=== PATIENT | female | born 1945 | race Caucasian/White ===

== ENCOUNTER 2017-02-14 13:33 | Emergency (ER) | payer OTHER, MEDICARE ==
[~2017-02-14] VITALS: Ht 162.6 cm; Wt 70.0 kg
[~2017-02-14 13:33] MED LIST: ANT25 PO; NXM/40 PO; ONDA4TAB46 PO
[2017-02-14 13:38] VITALS: Ht 162.6 cm; Wt 70.0 kg
[2017-02-14] MEDS ORDERED: ACETAMINOPHEN 500 MG TAB PO STA (13:54)
[2017-02-14] MEDS ORDERED: FLNIN/ NAE (14:10)
[2017-02-14] MEDS ORDERED: PRMVC PV (14:10)
[2017-02-14] MEDS ORDERED: CALC500T83 (14:11)
--- NOTE | 2017-02-14 14:41 | DIAGNOSTIC IMAGING REPORT ---
R FEMUR 2 VIEWS ROUTINE HISTORY: 72 years-old Female pain mid-shaft, lateral femur acute right femoral pain without reported trauma. COMPARISON: None available TECHNIQUE: Frontal and lateral views of the right femur FINDINGS: Mild to moderate right hip osteoarthritis. The bones are mildly demineralized. Tricompartment mild degenerative changes about the knee. No acute fracture or dislocation. The soft tissues are unremarkable. IMPRESSION: No acute fracture or dislocation. The above report was generated using voice recognition software. It may contain grammatical, syntax or spelling errors. Electronically signed by: Stanford Oneill M.D. 02/14/2017 2:39 PM Dictated Date/Time: 02/14/2017 2:30 PM
--- NOTE | 2017-02-14 14:45 | EMERGENCY ROOM VISIT NOTE ---
ED Visit Note First contact with patient: 13:41 CHIEF COMPLAINT: Hip pain HISTORY OF PRESENT ILLNESS: This 72-year-old female patient complains of moderate right hip pain which is worse with any movement of the leg and much worse with weight bearing. The pain began spontaneously this morning while getting out of bed. She states the pain did awaken her from sleep this morning. She states the pain became worse with movement as well as weightbearing. The pain continued to worsen over the late morning, so she decided to come to the emergency department. She states the pain does seem to be slightly better at this point, but is still causing her discomfort. The patient states the pain is in the outside of the hip and radiating down into the thigh. She does and rates it 8/10. She denies any injury. There is no numbness or tingling. There has been no abdominal or back pain. The patient was recently diagnosed with osteoporosis, so has been going to the gym more often this week. She states she went 3 times, this week for an hour each time. She states she has been doing a treadmill, bicycle, and weight lifting with her arms type of exercises. REVIEW OF SYSTEMS: A complete 10 point review of systems was reviewed with the patient with pertinent positives and negatives as per history of present illness. All else were negative. PMH: Osteoporosis, gastroparesis, GERD SOCIAL HISTORY: Patient lives locally at home. Non-smoker, no alcohol use. PHYSICAL EXAM: Vital Signs: Reviewed Nurse's notes. NECK: Supple, non-tender. ABDOMEN: No masses or tenderness, no organs palpable. Bowel sounds normo- active. HIP: The right hip is tender in the area of the bursa, not swollen, and the range of motion is full, however, painful. There is also pain radiating down the lateral thigh to about the mid-way point. The skin is normal and there are normal distal pulses and sensation. RADIOLOGY: R FEMUR 2 VIEWS ROUTINE HISTORY: 72 years-old Female pain mid-shaft, lateral femur acute right femoral pain without reported trauma. COMPARISON: None available TECHNIQUE: Frontal and lateral views of the right femur FINDINGS: Mild to moderate right hip osteoarthritis. The bones are mildly demineralized. Tricompartment mild degenerative changes about the knee. No acute fracture or dislocation. The soft tissues are unremarkable. IMPRESSION: No acute fracture or dislocation. The above report was generated using voice recognition software. It may contain grammatical, syntax or spelling errors. Electronically signed by: Stanford Oneill M.D. 02/14/2017 2:39 PM Dictated Date/Time: 02/14/2017 2:30 PM EMERGENCY DEPARTMENT COURSE: The patient was seen and evaluated as above. She presented with lateral hip pain radiating to the lateral right thigh. She has not taken any pain medication, and states the pain is worse on palpation and with weightbearing. The patient states she was recently diagnosed with osteoporosis, and is concerned that the osteoporosis could be contributing to the pain. I did discuss that I do not suspect x-ray will show any suspicious findings, but the patient states she would feel better if the leg were imaged. The patient was given 1000 mg Tylenol by mouth. X-ray was completed and did not reveal any bony abnormalities. I do suspect a trochanteric bursitis versus tendinitis due to the patient's recent increase in exercise. I discussed this with the patient at bedside, and she is in agreement with the assessment. She states her pain has almost completely resolved with the Tylenol. Due to the patient's history of GERD and GI problems, I did discuss that I recommend topical anti-inflammatories as opposed to oral anti-inflammatories. The patient is in agreement with this plan as well. I did discuss the case with Dr. Durán, who did see and evaluate the patient independently. Discharge instructions were reviewed and the patient was discharged home in good condition. I attest that I have personally reviewed the patient's current medication list. Patient was found to have normal blood pressure on screening and does not require follow-up. DIFFERENTIAL DIAGNOSIS: Trochanteric bursitis, tendinitis, IT Band syndrome, fracture, sprain, contusion, malignancy, and others DIAGNOSIS: Trochanteric bursitis Problem List Medical Problems: (1) Gallbladder disease Status: Chronic Surgical Problems: (1) History of tubal ligation Status: Chronic Current/Historical Medications Scheduled Diclofenac Sodium (Topical) (Voltaren 1% Top Gel), 4 GM TOP QID Estrogens, Conjugated (Premarin), 1 APPLN PV Q2D Fluticasone Propionate (Fluticasone Propionate), 2 SPRAYS MAGALIS DAILY Miscellaneous Medications Calcium (Calcium), Unknown Dose Allergies Coded Allergies: Codeine (Verified Adverse Reaction, Unknown, n/v, 02/14/17) Vital Signs Date Time Temp Pulse Resp B/P (MAP) Pulse Ox O2 Delivery O2 Flow Rate FiO2 02/14/17 15:32 36.5 64 18 163/90 97 Room Air 02/14/17 13:38 36.6 94 18 145/85 93 Medications Administered Medications (Trade) Dose Ordered Sig/Gurdeep Route Start Time Stop Time Status Last Admin Dose Admin Acetaminophen (Tylenol Tab) 1,000 mg NOW STAT PO 02/14/17 13:54 02/14/17 13:55 DC 02/14/17 14:04 1,000 MG Departure Information Impression Primary Impression: Trochanteric bursitis of right hip Dispostion Home / Self-Care Condition GOOD Prescriptions Diclofenac Sodium (Topical) (VOLTAREN 1% TOP GEL) 1 % Gel 4 GM TOP QID, #1 TUBE Prov: Ximena White, YOLANDA 02/14/17 Referrals Navi Damon M.D. (PCP) Patient Instructions ED Bursitis, My [facility], Trochanteric Bursitis Additional Instructions You were seen in the ED today for right thigh pain. I suspect Trochanteric bursitis or a tendonitis related to your recent exercise regimen. Ibuprofen(Motrin, Advil) may be used for fever or pain. Use 600mg every six hours as needed. Take with food. Avoid using more than 2400mg in a 24 hour period. Do not use 2400mg per day for more than three consecutive days without physician direction. Prolonged inappropriate use can lead to stomach upset or ulcers. (AND/OR) Acetaminophen(Tylenol) may be used for fever or pain. Use 1000mg every six hours as needed. Avoid using more than 4000mg in a 24 hour period. Ice compresses for 20 minutes at a time four times daily for 2-3 days. Use a cane or walker to help you ambulate if needed. Rest and elevate your injury. As discussed, I do recommend Physical Therapy for this type of injury. You should contact your PCP for PT referral. Return to the ER immediately for any numbness, tingling, severe pain, extreme swelling in the extremity or as needed. Call [facility], [phone], if no improvement in 2-3 weeks or after PT to arrange follow up for your injury. Follow-up with your primary care physician in 2 to 3 days for a recheck of your current condition.
[2017-02-14] MEDS ORDERED: DICL1GEL12 TOP (14:54)
--- NOTE | 2017-02-14 15:05 | EMERGENCY ROOM VISIT NOTE ---
ED Visit Note First contact with patient: 13:41 Staff note: I have reviewed the Patients chart and have discussed this case with my PA. I generally agree with the ED note and findings.
[2017-02-14 15:32] VITALS: BP 163/90; PULSE 64; TEMP 36.5; O2SAT 97
== END 2017-02-14 15:40 | disposition home or self-care (01) ==
LOC: C.EDB 13:34 → C.EDD 15:40
DX: M70.61 Trochanteric bursitis, right hip (principal); M81.0 Age-related osteoporosis without current pathological fracture; Z98.51 Tubal ligation status

== ENCOUNTER → 2017-11-10 | Outpatient (CLI) | payer OTHER, MEDICARE ==
[~2017-11-10] MED LIST changes: -ANT25 PO; +CALC500T83; +DICL1GEL12 TOP; +FLNIN/ NAE; -NXM/40 PO; -ONDA4TAB46 PO; +PRMVC PV
--- NOTE | 2017-11-10 11:55 | DIAGNOSTIC IMAGING REPORT ---
LUMBAR SPINE 2 VIEWS CLINICAL HISTORY: Followup status post laminectomy. FINDINGS: AP and lateral views of the lumbar spine are compared to study dated 09/15/2017. The skeletal structures are osteopenic. There is mild superior endplate irregularity seen at L5. A mild compression deformity is not excluded. Vertebral body height is otherwise maintained throughout the lumbar spine. Alignment is preserved. There are postoperative changes from discectomy with laminectomy and posterior fusion seen at L4-L5. The orthopedic hardware appears intact. The transverse processes and the remaining spinous processes appear intact. Mild to moderate disc space narrowing is seen at L3-L4 and L5-S1. The visualized sacrum and bony pelvis appear intact. Mild sclerotic change is noted in the sacroiliac joints. Cholecystectomy clips are identified in the right upper quadrant. No bowel obstruction is seen. Atherosclerotic calcification is noted in the abdominal aorta. IMPRESSION: 1. Again seen are postoperative changes from L4-L5 spinal fusion. The orthopedic hardware appears intact. 2. There is mild superior endplate irregularity seen at L5. A mild compression deformity is not excluded. Correlate for point tenderness at this level. Dictated: 11/10/2017 10:54 AM Transcribed: 11/10/2017 11:54 AM [email or web address] Electronically signed by: Florentino Weir M.D. 11/10/2017 11:56 AM Dictated Date/Time: 11/10/2017 10:54 AM
== END | disposition home or self-care (01) ==
LOC: C.RDSM 13:34
PROVIDERS: ATTEND Orthopaedic Surgery
DX: M54.16 Radiculopathy, lumbar region (principal); M43.16 Spondylolisthesis, lumbar region